=== PATIENT | female | born 1980 | race Caucasian/White ===

== ENCOUNTER 2022-04-12 05:20 | Emergency (ER) | payer SELFPAY ==
[2022-04-12 05:23] VITALS: BP 135/88; PULSE 79; RESP 18; TEMP 36.7; O2SAT 99; BMI 34.1
--- NOTE | 2022-04-12 05:51 | CT_ITS ---
EXAM: CT abdomen and pelvis without contrast HISTORY: flank pain TECHNIQUE: No intravenous contrast. A radiation dose optimization technique was used for this scan. COMPARISON: None. LIMITATIONS: None. LOWER CHEST: Normal. LIVER: Cyst in the left hepatic lobe. GALLBLADDER: Gallstone. No inflammatory change. BILE DUCTS: Normal. PANCREAS: Normal. SPLEEN: Normal. ADRENAL GLANDS: Normal. KIDNEYS/URETERS/BLADDER: Punctate nonobstructing left renal stone. 4 mm obstructing stone in the proximal right ureter. There is moderate right hydronephrosis. AORTA: Normal caliber. BOWEL/MESENTERY: Normal. APPENDIX: Normal. PERITONEUM: Mild free pelvic fluid. REPRODUCTIVE ORGANS: Normal. BONES/SOFT TISSUES: No acute fracture. OTHER: None. CONCLUSION: 4 mm obstructing stone in the proximal right ureter with associated moderate hydronephrosis. Gallstone. Electronically Signed: Gonsalo Gilliland MD at 6:52 EST , CT/Abdomen/Pelvis without Cont IMPRESSION: undefined
[2022-04-12 05:58] LABS: Absolute Lymphocyte Count 1.82 X10^3/uL (0.83-4.51); Absolute Neutrophil Count 3.4 X10^3/uL (2.0-7.7); Basophil# 0.06 X10^3/uL; Basophil% 0.9 % (0-1); Eosinophil# 0.35 X10^3/uL; Eosinophils% 5.2 % (0-5); Hematocrit 43.2 % (37-47); Hemoglobin 14.1 g/dL (12.0-15.0); Lymphocyte # 1.82 X10^3/ul (0.83-4.51); Lymphocyte % 26.8 % (19-41); Mean Corp Hgb Conc 32.6 g/dL (32-36); Mean Corpuscular Hgb 27.7 pg (27.0-32.0); Mean Corpuscular Volume 84.9 fL (81-99); Mean Platelet Vol. 10.6 fl (6.2-12.0); Monocyte# 1.14 X10^3/uL; Monocyte% 16.8 % (0-10); NRBC Flagged by Analyzer 0 % (0-5); Neutrophil # 3.38 X10^3/uL (2.7-7.7); Neutrophil % 49.9 % (47-70); Platelet Count 257 K/mm3 (150-450); RBC Distribution Width CV 13.1 % (11.6-14.6); RBC Distribution Width SD 40.2 fl (35.1-43.9); Red Blood Count 5.09 M/mm3 (4.2-5.4); White Blood Count 6.8 K/mm3 (4.4-11.0)
[2022-04-12] MEDS: 0.9% Normal Saline 1,000 ML 999 ML IV (05:58)
[2022-04-12] MEDS: Morphine 4 MG/ML Syringe IV (05:58)
[2022-04-12] MEDS: Ondansetron 4 MG/2 ML Vial IV (05:59)
[2022-04-12 06:23] LABS: Internal QC Validated? YES +Cl - CLEAR BKGD; Pregnancy, Serum, hCG Quali. NEGATIVE Negative
[2022-04-12 06:28] LABS: AST(SGOT) 144 U/L (15-37); Alanine Aminotransfer ALT/SGPT 258 U/L (13-56); Albumin, Serum 3.5 g/dL (3.2-5.0); Alkaline Phosphatase 103 U/L (45-117); Anion Gap 8 (5-15); BUN 13 mg/dL (7-18); BUN/Creat Ratio 13.1 RATIO (10-20); Bilirubin, Direct 0.07 mg/dL (0.00-0.30); Calcium,Total 9.9 mg/dL (8.5-10.1); Chloride 107 mmol/L (98-107); Creatinine, Serum 0.99 mg/dL (0.55-1.02); EST Glomerular Filtration Rate 65 mL/min (>60); Est Glom Filt Rate - Afr Amer 78 mL/min (>60); Estimated Creatinine Clearance 52.09 ml/min; Globulin 3.7 g/dL (2.2-4.2); Glucose 122 mg/dL (74-106); Lipase 32 U/L (73-393); Potassium 3.9 mmol/L (3.5-5.1); Protein, Total 7.2 g/dL (6.4-8.2); Sodium Level 138 mmol/L (136-145)
--- NOTE | 2022-04-12 07:20 | EX.ED.DYSGE1 ---
HPI History of Present Illness Chief Complaint: Flank Pain Narrative Narrative: Patient is a 42-year-old female who states that she developed some pain in her right flank/upper abdomen yesterday evening. She states it was mild at first but as time progressed the pain became more sharp and intense and caused bouts of nausea and vomiting. She denies any fevers or chills she denies any dysuria or hematuria or concern for . She states that there has been no recent trauma or excessive activity. However the pain has steadily worsened throughout the evening and secondary to that she presents for evaluation PFSH PFS Home Medications cephalexin 500 mg capsule 500 mg PO TID 7 days #21 caps 04/12/22 [Rx Last Taken Unknown] ketorolac 10 mg tablet 10 mg PO 4X/DAY PRN PRN pain 5 days #20 tabs 04/12/22 [Rx Last Taken Unknown] multivitamin 1 tab PO DAILY 04/12/22 [History Last Taken Unknown] oxycodone-acetaminophen 5 mg-325 mg tablet (Percocet) 1 tab PO Q6H PRN pain 3 days #12 tabs 04/12/22 [Rx Last Taken Unknown] tamsulosin 0.4 mg capsule (Flomax) 0.4 mg PO DAILY 14 days #14 caps 04/12/22 [Rx Last Taken Unknown] Allergy/AdvReac Type Severity Reaction Status Date / Time No Known Allergies Allergy Verified 04/12/22 05:25 Surgical History (Updated 04/12/22 @ 05:26 by Shauna Larson) History of tonsillectomy Social History Smoking Status: Never smoker [facility] ED Constitutional Constitutional ED: Denies chills or fever(s) ENT ENT ED: Denies sore throat Cardiovascular Cardiovascular: Denies chest pain Respiratory/Chest Respiratory/Chest: Denies cough or dyspnea Gastrointestinal Gastrointestinal: Reports abdominal pain, nausea and vomiting; Denies diarrhea Genitourinary Genitourinary ED: Denies dysuria or hematuria Musculoskeletal Musculoskeletal: Reports back pain; Denies myalgias Integumentary Denies rash Neurologic Neurologic: Denies headache(s) Hematologic/Lymphatic Hematologic/Lymphatic: Denies easy bleeding or easy bruising EXAM Physical Exam Const Vital Signs: 04/12/22 05:23 04/12/22 07:21 Temperature 98.0 F Temperature Source Oral Pulse Rate 79 76 Respiratory Rate 18 16 Blood Pressure 135/88 H 124/87 H Blood Pressure Mean 103 99 Pulse Ox 99 99 Oxygen Delivery Method Room Air Room Air Positive well nourished and well developed General Appearance ED: well developed HEENT Reports moist mucous membranes Eyes PERRL and EOMs intact bilaterally General Eye ED: Negative for scleral icterus Neck supple Resp normal respiratory effort and clear to auscultation bilaterally Cardio regular rate and regular rhythm Rate: other Other Details: Radial pulses are plus 2 out of 4 bilaterally are equal and symmetric GI non-distended GI Narrative: Abdomen is soft and nondistended with normoactive bowel sounds. Patient has mild pain with palpation in the midepigastric and right upper quadrant region but no voluntary guarding or rigidity and negative Cornejo sign. No pulsatile mass Auscultation: normoactive bowel sounds Palpation: soft Back/Spine Back/Spine Narrative: Positive right CVA pain noted Extremity normal to inspection Neuro oriented x3 and CN's II-XII intact bilaterally Sensorium / Orientation: alert Psych mental status grossly normal Skin no rashes or lesions noted General Skin Exam: Negative for jaundice MDM MDM MDM Narrative Medical decision making narrative: Presented to the ER with history and exam most concerning for kidney stone and secondary to his basic blood work and a noncontrast CT were obtained. Labs show no leukocytosis or acute kidney injury. There are changes consistent with blood and infection within the urine and therefore the urine will be sent for culture. The CAT scan showed a 4 mm stone in the proximal right ureter consistent with her physical exam and history. At this time her pain has reduced to a value of a 2 with Toradol and morphine. She does not have urosepsis or acute kidney injury changes. Therefore she will be given symptomatic medications and will follow-up with urology for further evaluation. Lab Data Attestation: I reviewed the patient's lab results. Labs: Laboratory Results - last 24 hr 04/12/22 04/12/22 04/12/22 05:30 05:30 05:30 WBC 6.8 RBC 5.09 Hgb 14.1 Hct 43.2 MCV 84.9 MCH 27.7 MCHC 32.6 RDW Std Deviation 40.2 RDW Coeff of Elia 13.1 Plt Count 257 MPV 10.6 Immature Gran % (Auto) 0.400 Neut % (Auto) 49.9 Lymph % (Auto) 26.8 [place] % (Auto) 16.8 H Eos % (Auto) 5.2 H Baso % (Auto) 0.9 Absolute Neuts (auto) 3.4 Absolute Lymphs (auto) 1.82 Nucleated RBC % 0 Sodium 138 Potassium 3.9 Chloride 107 Carbon Dioxide 23.0 Anion Gap 8 BUN 13 Creatinine 0.99 Estim Creat Clear Calc 52.09 Est GFR (MDRD) Af Amer 78 Est GFR (MDRD) Non-Af 65 BUN/Creatinine Ratio 13.1 Glucose 122 H Calcium 9.9 Total Bilirubin 0.40 Direct Bilirubin 0.07 AST 144 H ALT 258 H Alkaline Phosphatase 103 Total Protein 7.2 Albumin 3.5 Globulin 3.7 Lipase 32 L Serum , Qual NEGATIVE Urine Color Urine Clarity Urine pH Ur Specific [place] Urine Protein Urine Glucose (UA) Urine Ketones Urine Occult Blood Urine Nitrite Urine Bilirubin Urine Urobilinogen Ur Leukocyte Esterase Urine RBC Urine WBC Ur Squamous Epith Cells Urine Bacteria Urine Mucus 04/12/22 07:28 WBC RBC Hgb Hct MCV MCH MCHC RDW Std Deviation RDW Coeff of Elia Plt Count MPV Immature Gran % (Auto) Neut % (Auto) Lymph % (Auto) [place] % (Auto) Eos % (Auto) Baso % (Auto) Absolute Neuts (auto) Absolute Lymphs (auto) Nucleated RBC % Sodium Potassium Chloride Carbon Dioxide Anion Gap BUN Creatinine Estim Creat Clear Calc Est GFR (MDRD) Af Amer Est GFR (MDRD) Non-Af BUN/Creatinine Ratio Glucose Calcium Total Bilirubin Direct Bilirubin AST ALT Alkaline Phosphatase Total Protein Albumin Globulin Lipase Serum , Qual Urine Color Mary Urine Clarity Cloudy Urine pH 7.0 Ur Specific [place] 1.015 Urine Protein 30 H Urine Glucose (UA) Normal Urine Ketones 150 A* Urine Occult Blood 250 H Urine Nitrite Negative Urine Bilirubin Negative Urine Urobilinogen Normal Ur Leukocyte Esterase 25 H Urine RBC > 100 SEEN Urine WBC 0-5 SEEN Ur Squamous Epith Cells 0-5 SEEN Urine Bacteria 2+ Urine Mucus 0 SEEN Radiography Diagnostic Testing: Clinical Impression(s) from Imaging Studies Abdomen/Pelvis CT 04/12/22 05:51 IMPRESSION: undefined Discharge Plan Triage Chief Complaint: Flank Pain ED Provider: Quinn [address] Dx/Rx/DC Orders Clinical Impression: Kidney stone, Renal colic, UTI (urinary tract infection) Instructions: ED Kidney Stone w/ Colic Prescriptions: New cephalexin 500 mg capsule 500 mg PO TID 7 Days Qty: 21 0RF oxycodone-acetaminophen [Percocet] 5-325 mg tablet 1 tab PO Q6H PRN (Reason: pain) 3 Days Qty: 12 0RF tamsulosin [Flomax] 0.4 mg capsule 0.4 mg PO DAILY 14 Days Qty: 14 0RF ketorolac 10 mg tablet 10 mg PO 4X/DAY PRN PRN (Reason: pain) 5 Days Qty: 20 0RF No Action multivitamin Tablet 1 tab PO DAILY Primary Care Provider: Facundo Craven Referrals: Nehemias De Oliveira MD [Med Staff - Active Staff] - Facundo Craven DO [Primary Care Provider] - Activity Restrictions/Additional Instructions: Please return to the ER for repeat evaluation if your pain is uncontrolled or you develop a fever over 100.4. Otherwise stay hydrated and active and follow-up with urology to discuss further treatment options if you do not pass the stone spontaneously Disposition Disposition: Home, Self Care
[2022-04-12 07:21] VITALS: BP 124/87; PULSE 76; RESP 16; O2SAT 99
[2022-04-12] MEDS: Ketorolac 30 MG/ML Syringe IV (07:25)
[2022-04-12 07:32] LABS: Mucous, Urine 0 SEEN /hpf (<or=2+)
[2022-04-12 07:34] LABS: Color, Urine Amber (Yellow); Glucose, Dipstick Normal (Normal); Leukocyte Esterase-Dipstick 25 /ul (Negative); Nitrite-Dipstick Negative (Negative); Occult Blood-Urine 250 /ul (Negative); Protein-Dipstick 30 mg/dl (Negative); Specific Gravity, Urine 1.015 (1.002-1.030); Urine Bilirubin Dipstick Negative (Negative); Urine Clarity Cloudy (Clear); Urine Urobilinogen Normal (Normal)
[2022-04-12 07:41] LABS: Ketone-Dipstick 150 mg/dl (Negative)
[2022-04-12 07:51] LABS: Red Blood Cells-Urine > 100 SEEN /hpf (0-5)
[2022-04-12 07:52] LABS: Bacteria 2+ /hpf (None Seen); Squamous Epithelial Cells - UA 0-5 SEEN /hpf (5-10); White Blood Cells 0-5 SEEN /hpf (0-5)
[2022-04-12 08:13] VITALS: BP 110/70; O2SAT 97
[2022-04-12] MEDS: Cephalexin 250 MG Capsule 500 MG PO (08:16)
== END 2022-04-12 08:14 | disposition home or self-care (01) ==
PROVIDERS: Emergency Provider Emergency Medicine; PCP Family Medicine; Visit Provider Emergency Medicine
DX: N13.6 Pyonephrosis (principal); R11.2 Nausea with vomiting, unspecified; Z79.899 Other long term (current) drug therapy
CPT/HCPCS: 74176; 80048; 80076; 81001; 83690; 84703; 85025; 87086; 87088; 96374; 96375; 99283; J7030; A4216; J2405

== ENCOUNTER 2022-04-15 16:53 | Emergency (ER) | payer SELFPAY ==
[2022-04-15 17:04] VITALS: BP 126/106; PULSE 75; RESP 16; TEMP 36.6; O2SAT 98; BMI 29.2
--- NOTE | 2022-04-15 17:39 | ED.RN ---
PT WAS TOLD BY PCP WIG COMBER THAT ED COULD RETRIEVE STONE. PT DECIDES TO GO HOME AND GO TO UROLOGY APPT IN AM. PT STATES SHE STILL HAS PAIN MEDS
== END 2022-04-15 18:05 | disposition left against medical advice (07) ==
LOC: ED 18:09
PROVIDERS: Emergency Provider Emergency Medicine; PCP Family Medicine; Visit Provider Emergency Medicine
DX: Z53.21 Procedure and treatment not carried out due to patient leaving prior to being seen by health care provider (principal)

== ENCOUNTER 2022-04-16 11:06 | Day surgery (SDC) | payer SELFPAY ==
[2022-04-16 11:40] LABS: Internal QC Validated? YES +Cl - CLEAR BKGD; Pregnancy, Urine Negative Negative
[2022-04-16] MEDS: Lactated Ringers 1,000 ML 15 ML IV (12:25)
[2022-04-16 12:51] VITALS: BMI 34.4
--- NOTE | 2022-04-16 20:03 | PCM.HP.STD ---
HPI - General General Date of Service: 04/16/22 Chief Complaint: Right ureteral calculi HPI Narrative SARAHI NEVILLE, is a 42 F who presents today to my office with severe right flank pain she has a 4 mm stone that she been trying to pass has not been able to pass it, I offered her surgery later this week but she was in pain so we put her surgery scheduled for today. PFSH Home Medications cephalexin 500 mg capsule 500 mg PO TID 7 days #21 caps 04/12/22 [Rx Last Taken Unknown] ketorolac 10 mg tablet 10 mg PO 4X/DAY PRN PRN pain 5 days #20 tabs 04/12/22 [Rx Last Taken Unknown] multivitamin 1 tab PO DAILY 04/12/22 [History Last Taken Unknown] oxycodone-acetaminophen 5 mg-325 mg tablet (Percocet) 1 tab PO Q6H PRN pain 3 days #12 tabs 04/12/22 [Rx Last Taken Unknown] tamsulosin 0.4 mg capsule (Flomax) 0.4 mg PO DAILY 14 days #14 caps 04/12/22 [Rx Last Taken Unknown] Allergy/AdvReac Type Severity Reaction Status Date / Time No Known Allergies Allergy Verified 04/16/22 12:50 Surgical History History of tonsillectomy Social History Smoking Status: Never smoker Vital Signs Vital Signs Vital Signs: 04/16/22 12:51 04/16/22 12:51 Temperature Source Temporal Respiratory Pattern Irregular Weight Weight: 80 kg Body Mass Index (BMI) 34.4 Results Lab / Micro Data Labs: Laboratory Results - last 24 hr 04/16/22 11:30: Urine Test Negative
--- NOTE | 2022-04-16 20:04 | DCINST_ITS ---
Discharge Instructions Diet Discharge Diet: No restrictions, Light diet - advance as tolerated and Soft diet Activity Discharge Activity: Return to Normal Activity Additional Activity Instructions:: push fluids Follow Up Care Please Follow Up With: Nehemias De Oliveira MD When: call to get stent out Test Results: Test results from this visit will be discussed in further detail at your follow- up appointment, if applicable. Discharge Plan Admission Attending Provider: Nehemias De Oliveira Primary Care Provider: Facundo Craven Discharge Orders/Prescriptions Prescriptions: No Action multivitamin Tablet 1 tab PO DAILY cephalexin 500 mg capsule 500 mg PO TID 7 Days Qty: 21 0RF oxycodone-acetaminophen [Percocet] 5-325 mg tablet 1 tab PO Q6H PRN (Reason: pain) 3 Days Qty: 12 0RF tamsulosin [Flomax] 0.4 mg capsule 0.4 mg PO DAILY 14 Days Qty: 14 0RF ketorolac 10 mg tablet 10 mg PO 4X/DAY PRN PRN (Reason: pain) 5 Days Qty: 20 0RF Referrals / Follow Up: Facundo Craven DO [Primary Care Provider] - Disposition Disposition (needs filled in before D/C Order can be placed): Home, Self Care
--- NOTE | 2022-04-16 20:29 | PCM.OPRPT ---
Report of Operation Date of Procedure: 04/16/22 Pre-Operative Diagnosis: Obstructing right ureteral calculi Post-Operative Diagnosis: Same Surgery/Procedure Performed:: Cystoscopy, right retrograde pyelogram interpretation of fluoroscopic images, balloon dilation of the ureter, attempted and aborted ureteroscopy, right stent placement Description of Surgical Findings:: Indication this is a 42-year-old female who I saw today in the office with severe right renal colic from a kidney stone she has had this for several days with no resolution she not been able to pass a stone despite it only being about 4 mm in size I offered her surgery later this week but she wanted to have surgery immediately because of the severe pain so we put her on the schedule as a first additional add-on to the schedule and took her to surgery. Patient was taken back to the operating room after smooth induction of anesthesia she was placed in dorsolithotomy position. The urethra vaginal area prepped and draped in usual sterile fashion went into the bladder with a 21 Kisw[place]ili rigid cystourethroscope entire length the urethra is normal the trigone was normal identify the right and left ureteral orifice I first cannulated the left ureteral orifice with a Glidewire it went and really easily went up to the kidney quite easily I then attempted to go over the wire with balloon dilator and I could not get the balloon dilator any further into the ureter than less than a millimeter or 2 it was quite stenotic. I then put a second wire. I then went in with the ureteroscope deceiving get into the ureter and again I could not get and it was very severely inflamed and stenotic and therefore did not force the ureteroscope up the ureter. I decided in the place just place a stent. And I tried to place a stent over the wire but the stent was coiling from resistance from the stone and I initially could not get the stent past the stone because it is so impacted. So then I backloaded the scope after off the wire and then I loaded over the wire a Pollick catheter we performed a retrograde pyelogram and confirmed I was in the kidney and the ureter and not subcu mucosal and then I put a Super Stiff wire up on the right side and then backloaded the scope over the Super Stiff wire and then I advanced a stent over the Super Stiff wire into the right kidney using gentle traction to get the stent into position on the right side. Once the stent was in good position that I pulled the wire and the stent coiled in the kidney and bladder in good position and then we drained the bladder plan is to leave the stent in for at least 2 weeks let things dilate naturally and get a set up for surgery for ureteroscopy and laser lithotripsy as an outpatient. Was not able to laser the stone today because a severely stenotic ureter probably from inflammation from the stone. Surgeon: Nehemias De Oliveira Type of Anesthesia: General Drains: stent right Admit VTE Documentation VTE Present on Admission: No VTE Mechan Device Prophylaxis: SCD's VTE Pharm Prophylaxis ordered?: No
[2022-04-16 20:37] VITALS: BP 121/84; BP 124/86; PULSE 68; RESP 16; TEMP 36.6; O2SAT 99
[2022-04-16 20:45] VITALS: BP 124/83; BP 124/86; PULSE 62; RESP 14; O2SAT 100
[2022-04-16 21:00] VITALS: BP 124/86; BP 129/88; PULSE 59; RESP 16; O2SAT 100
[2022-04-16 21:15] VITALS: BP 124/86; BP 131/88; PULSE 55; RESP 16; TEMP 36.3; O2SAT 100
== END 2022-04-16 21:48 | disposition home or self-care (01) ==
LOC: SDC 11:15 → AC 11:36
PROVIDERS: Anesthesiology; PCP Family Medicine; Referring Provider Urology; Visit Provider Urology
PROC: 0TJ98ZZ Inspection of Ureter, Via Natural or Artificial Opening Endoscopic (ICD-10-PCS; CPT 52352; principal; 2022-04-16 16:50)
DX: N20.1 Calculus of ureter (principal); R05.9 Cough, unspecified
CPT/HCPCS: 52332; 00910; 76000; 81025; J7120; C1769; C2617; J2405